=== PATIENT | female | born 1945 | race Two or more races ===

== ENCOUNTER 2018-02-07 00:47 | Emergency (ER) | payer OTHER ==
[~2018-02-07] VITALS: Ht 160 cm; Wt 81.6 kg
[~2018-02-07 00:47] MED LIST: AML5T GT; ATEN-60 PO; BENA20TA14 PO; CLOP75TA41 PO; GEMF600T3 PO; GLIM4TAB42 PO; GLYB1.25 PO; METF-370 PO; PLAVIX PO; PRAV20TA3 GT; SIMV-13 OR; TRIA50TA2 OR
[2018-02-07 01:30] LABS: Urine Bacteria NONE SEEN /hpf (None Seen); Urine Blood Negative /uL (Negative); Urine Specific Gravity 1.005 (1.001-1.035); Urine WBC 7 /hpf (0 - 5)
[2018-02-07 01:33] LABS: Basophils # (auto) 0.1 uL; Basophils % (auto) 1.2 % (0.0-2.0); Eosinophils # (auto) 0.3 uL; Eosinophils % (auto) 3.6 % (0.0-7.0); Hematocrit 39.8 % (36.0-46.0); Hemoglobin 14.2 g/dL (12.2-16.2); Lymphocytes # (auto) 3.6 uL; Lymphocytes % (auto) 46.7 % (10.0-50.0); Mean Corpuscular Hemoglobin 32.2 pg (28.0-32.0); Mean Corpuscular Hgb Conc. 35.8 g/dL (32.0-36.0); Monocytes # (auto) 0.6 uL; Monocytes % (auto) 8.1 % (0.0-12.0); Neutrophils # (auto) 3.1 uL; Neutrophils % (auto) 40.4 % (37.0-80.0); Nucleated Red Blood Cells % 0.2 %; Platelet Count (auto) 258 10^3/uL (140-450); Red Blood Cells 4.42 10^6/uL (4.0-5.20); Red Cell Distribution Width 13.6 % (11.8-14.3); White Blood Cell 7.8 10^3/uL (4.4-10.8)
[2018-02-07 01:40] LABS: Alanine Aminotransferase 35 U/L (13-56); Albumin 3.9 g/dL (3.4-5.0); Anion Gap 10 (5-15); Aspartate Aminotransferase 23 U/L (15-37); BUN/Creatinine Ratio 23.1; Blood Urea Nitrogen 31 mg/dL (7-18); Calcium 8.8 mg/dL (8.5-10.1); Carbon Dioxide 24 mmol/L (21-32); Chloride 102 mmol/L (98-107); GFR African American 50 mL/min; GFR Non-African American 41 mL/min; Glucose 157 mg/dL (74-106); Lipase 182 U/L (73-393); Magnesium 2.5 mg/dL (1.6-2.6); Potassium 3.4 mmol/L (3.5-5.1); Sodium 136 mmol/L (136-145)
[2018-02-07 01:45] LABS: Alkaline Phosphatase 73 U/L (45-117); Bilirubin, Total 0.3 mg/dL (0.2-1.0); Total Protein 8.2 g/dL (6.4-8.2)
[2018-02-07] MEDS ORDERED: TEMAZEPAM 15 MG CAP PO ONE (03:15)
== END 2018-02-07 04:55 | disposition home or self-care (01) ==
LOC: ER 00:49
DX: K57.30 Diverticulosis of large intestine without perforation or abscess without bleeding (principal); E86.0 Dehydration; G47.00 Insomnia, unspecified; E11.9 Type 2 diabetes mellitus without complications; E78.5 Hyperlipidemia, unspecified; I10 Essential (primary) hypertension; Z86.73 Personal history of transient ischemic attack (TIA), and cerebral infarction without residual deficits
CPT/HCPCS: 36415; 71045; 74176; 80053; 81001; 83690; 83735; 84484; 85025; 93005